=== PATIENT | male | born 1995 | race Caucasian/White ===

== ENCOUNTER 2017-10-14 00:05 | Emergency (ER) | payer OTHER ==
[2017-10-14] MEDS ORDERED: ACETAMINOPHEN 325 MG TABLET PO ONE (00:36)
[2017-10-14] MEDS ORDERED: IBUPROFEN 600 MG TABLET PO ONE (00:36)
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
[2017-10-14 01:50] VITALS: BP 136/82
== END 2017-10-14 01:50 | disposition home or self-care (01) ==
LOC: ER 00:05
PROC: 0HQ0XZZ Repair Scalp Skin, External Approach (ICD-10-PCS; principal; 2017-10-14)
DX: S01.01XA Laceration without foreign body of scalp, initial encounter (principal); R40.2410 Glasgow coma scale score 13-15, unspecified time; Y08.89XA Assault by other specified means, initial encounter; Y92.89 Other specified places as the place of occurrence of the external cause; I10 Essential (primary) hypertension; R00.0 Tachycardia, unspecified
CPT/HCPCS: 99283